=== PATIENT | female | born 1955 | race Caucasian/White ===

== ENCOUNTER 2021-03-29 15:08 | Emergency (ER) | payer MEDICARE, MEDICAID ==
[~2021-03-29] VITALS: Ht 162 cm; Wt 70.0 kg
[2021-03-29 15:18] VITALS: BP 167/83
[2021-03-29] MEDS ORDERED: ACHD5005 PO (15:33)
[2021-03-29] MEDS ORDERED: PRD50T PO (15:34)
--- NOTE | 2021-03-29 15:34 | ED Back Pain ---
General Chief Complaint: Back Problems Stated Complaint: R SIDE PAIN Nursing Triage Note: Pt here with right side low back pain that radiates down the back of her right leg. Pt denies trauma or new activity. Nursing Sepsis Screen: No Definite Risk History of Present Illness Date Seen by Provider: Mar 29, 2021 Time Seen by Provider: 15:25 Initial Comments 65-year-old female presents with right low back pain radiating to her right thigh for the past 2 days. Denies injury or previous problem. Denies urinary frequency, dysuria or blood in her urine. Denies fever, chills, nausea, vomit ing or abdominal pain. Pain somewhat worse with motion. Took 1 tramadol without relief this afternoon. Allergies and Home Medications Home Medications Hydrocodone/Acetaminophen 1 Each Tablet, 1 EACH PO Q4H Prescribed by: CHITO GIBSON on 03/29/211534 Prednisone 50 Mg Tab, 50 MG PO DAILY Prescribed by: CHITO GIBSON on 03/29/21 1534 Patient Home Medication List Home Medication List Reviewed: Yes Review of Systems Constitutional: No dizziness, No fever, No malaise, No weakness Respiratory: No cough, No short of breath Cardiovascular: No chest pain, No edema, No palpitations, No syncope Gastrointestinal: No abdominal pain, No loss of appetite, No nausea, No vomiting Genitourinary: No dysuria, No frequency, No hematuria, No hesitancy, No pain Musculoskeletal: back pain, muscle pain (R lateral thigh); No muscle weakness, No neck pain Psychiatric/Neurological: Denies Numbness, Denies Paresthesia, Denies Tingling Past Gorbhbg-Gupnlt-Gqcelj Hx Past Med/Social Hx: Reviewed Nursing Past Med/Soc Hx Patient Social History Recent Infectious Disease Expo: No Physical Exam Vital Signs Vital Signs - First Documented 03/29/21 15:18 Temp 36.5 Pulse 79 Resp 18 B/P (MAP) 167/83 (111) Pulse Ox 100 O2 Delivery Room Air Capillary Refill : Less Than 3 Seconds Height, Weight, BMI Height: '" Weight: lbs. oz. kg; 26.00 BMI Method: General Appearance: No Apparent Distress, WD/WN Gastrointestinal: Normal Bowel Sounds, No Organomegaly, No Pulsatile Mass, Non Tender, Soft Back: Normal Inspection, No CVA Tenderness, No Vertebral Tenderness, Decreased Range of Motion, Muscle Spasm (R mid lumbar paraspinal TTP); No Vertebral Tenderness Neurologic/Psychiatric: Alert, Oriented x3, No Motor/Sensory Deficits, Normal Mood/Affect; No Abnormal Gait Skin: Normal Color, Warm/Dry Progress/Results/Core Measures Results/Orders Vital Signs/I&O 03/29/21 15:18 Temp 36.5 Pulse 79 Resp 18 B/P (MAP) 167/83 (111) Pulse Ox 100 O2 Delivery Room Air Blood Pressure Mean: 111 Departure Impression Primary Impression: Lumbar radiculopathy Disposition: HOME, SELF-CARE Condition: Stable Departure-Patient Inst. Decision time for Depature: 15:32 Referrals: APOORVA FARNSWORTH MD (PCP/Family) Primary Care Physician Patient Instructions: Back Muscle Strain (DC), Radiculopathy (DC) Add. Discharge Instructions: follow up with Dr Farnsworth in 1 week All discharge instructions reviewed with patient and/or family. Voiced understanding. Scripts Prednisone (Prednisone) 50 Mg Tab 50 MG PO DAILY, #5 TAB Prov: CHITO GIBSON DO 03/29/21 Hydrocodone/Acetaminophen (Hydrocodone-Acetamin 5-325 mg) 1 Each Tablet 1 EACH PO Q4H for Abdominal Pain, #20 TAB Prov: CHITO GIBSON DO 03/29/21 CHITO GIBSON DO Mar 29, 2021 15:34
== END 2021-03-29 15:43 | disposition home or self-care (01) ==
LOC: ER FS 15:10
DX: M54.16 Radiculopathy, lumbar region (principal)
CPT/HCPCS: 99281